=== PATIENT | female | born 1935 | race Caucasian/White ===

== ENCOUNTER 2018-09-05 12:10 | Emergency (ER) | payer OTHER ==
[2018-09-05] MEDS ORDERED: NS 500 ML IV ONE (14:29)
[2018-09-05 14:46] LABS: PLATELET COUNT 135 10^3/uL (150-400)
[2018-09-05 14:51] LABS: PROTIME(PATIENT) 12.8 SEC (12.0-15.0)
--- NOTE | 2018-09-05 15:27 | EDPHY ---
H & P Time Seen by Provider: 09/05/18 14:01 HPI/ROS: HPI Multiple falls. 83-year-old female by private vehicle with her son. This patient lives in a private residence down in [place]. Her son and family live here in [place]. The patient has had an upper respiratory infection with cough. She cotton over- the-counter cough and cold medication on Thursday night. Sometime early Thursday morning she got up to go to the bathroom and she fell striking her left posterior head. She denies loss of consciousness. She was able to get up. Her son brought her from [place] to his house last night. She had another fall last night while going to the bathroom is well striking her elbow and her right buttock area. She then had another fall this morning which she describes as mild and denies hurting herself with this fall. According to her son she has had no change in mentation. No difficulty walking. She denies neck pain. No back pain. No loss of sensation or weakness in her extremities. She currently denies any significant extremity pain. ROS: Constitutional: No fever, no chills. As above. Eyes: No discharge. No changes in vision. ENT: No sore throat. She has had nasal congestion. Respiratory: She has had a nonproductive cough. No shortness of breath. Cardiac: No chest pain, no palpitations. Gastrointestinal: No abdominal pain, no vomiting, no diarrhea. Genitourinary: No hematuria. No dysuria or increased frequency with urination. Musculoskeletal: No back pain. No neck pain. As above. Skin: No rashes. No lacerations. Neurological: No headache. No focal weakness or altered sensation. Past medical history: Urinary tract infections, right ureteral tumor. Social history: As above. Currently here with her son. Nonsmoker. No alcohol. Physical Exam: General Appearance: Alert, no distress. This patient is responding to questions appropriately and in full sentences. This patient appears well- hydrated and well-nourished. Head: Normocephalic atraumatic except for a left-sided posterior parietal occipital area hematoma. No scalp laceration appreciated. No bony step-off or deformity noted on palpation of this area. Face: Facial bones are stable on palpation. Eyes: Pupils equal and round and reactive to light, no pallor or injection. No lid erythema or edema. ENT, Mouth: Mucous membranes moist. Dentition is intact. No malocclusion of the jaw. No tongue lacerations or abrasions. Pharynx is clear. The bilateral nasal canals are clear. No septal hematoma. Respiratory: There are no retractions, lungs are clear to auscultation with good air movement bilaterally. Chest wall is stable to AP and lateral palpation. Cardiovascular: Regular rate and rhythm. No murmur. Gastrointestinal: Abdomen is soft and nontender, no masses, bowel sounds normal. Neurological: Motor sensory function is intact. Cranial nerves are normal. Cerebellar function intact. Skin: Warm and dry, no rashes. No lacerations, abrasions or contusions. Musculoskeletal: Neck is supple and nontender. The trachea is midline. No midline cervical, thoracic, lumbar or sacral tenderness on palpation. No flank tenderness on palpation. She has some ecchymosis and point tenderness directly over her right olecranon on. No bony deformity or step-off noted on palpation of this area. She has some mild pain involving the ischial tuberosity on the right side when ranging and axial loading her right hip. Extremities are symmetrical except noted, full range of motion except noted. All joints in the bilateral upper and bilateral lower extremities range without pain or impingement except noted. No tenderness on palpation of the long bones in the bilateral upper and bilateral lower extremities except noted. Psychiatric: No agitation. No depression. Database: EKG: EKG time is 12:18 p.m.; EKG shows a narrow complex normal sinus rhythm with a ventricular rate of 68. The NM, QRS, QT intervals are within normal limits. There are no ST-T wave changes indicative of ischemic or injury pattern. No evidence of right heart strain. No evidence of Brugada syndrome, WPW, hypertrophic cardiomyopathy. Interpreted by me. Imaging: Right elbow x-ray series: Negative. No evidence of fracture, subluxation, dislocation. Interpreted by me. Chest x-ray AP portable: The cardiac mediastinal silhouette is unremarkable. No evidence of pneumothorax. No evidence of infiltrate. The bony elements are unremarkable. Right hip x-ray series: Negative. No evidence of fracture, subluxation, dislocation. Interpreted by me. CT head without contrast: Left posterior parietal scalp hematoma. Otherwise negative. Results were discussed with staff radiologist Dr. Cruz Florian. Procedures: Emergency department course: Triage vital signs reviewed. Initial triage blood pressure was hypotensive. She says that she does have intermittent hypotension when she gets dehydrated. 2nd reading was normal. Vital signs are otherwise normal. IV was placed. She was placed on a cardiac tech. EKG obtained and reviewed by myself. She will be given 500 cc of IV normal saline over the next hour. X-ray and CT imaging as above were ordered. Patient and son consent to workup. 4:30 p.m., the patient was re-evaluated. I discussed results of her emergency department workup with both her and her son. I discussed admission for further evaluation by the hospitalist service and discussion of placement to a living situation with a higher level of care. Both the patient and her son do not want her admitted at this time. The son tells me that the patient will be staying with him and his family. They will then follow up with her primary care physician in [place] on Thursday of this week. We got the patient up and ambulated her around the emergency department. She did not have any difficulty with this. However, she had low blood pressures when she returned. This hypotension resolved. She had no associated tachycardia. No associated lightheadedness. She and her son both tell me that she has had issues with hypotension. I again discussed admission with the patient with her nurse . Both she and her son and daughter are again refusing admission. The patient competently engages in shared decision making. They demonstrate capacitance to make decisions. In my professional opinion, both she and her son understand the risks of refusing admission and further evaluation at our hospital at this time. Follow-up was discussed with the 2 of them. All of their questions were answered. The patient was discharged in good condition with her son. Differential Diagnosis: The differential diagnosis on this patient includes but is not limited to bronchitis, upper respiratory infection, minor head injury, right elbow contusion, multiple falls, orthostatic hypotension. This represents a partial list of diagnoses considered. These considerations are based on history, physical exam, past history, reassessment and diagnostic testing. Smoking Status: Never smoked Constitutional: Initial Vital Signs Temperature (C) 36.6 C 09/05/18 12:37 Heart Rate 69 09/05/18 12:37 Respiratory Rate 16 09/05/18 12:37 Blood Pressure 80/55 L 09/05/18 12:37 O2 Sat (%) 94 09/05/18 12:37 O2 Delivery Mode Room Air Allergies/Adverse Reactions: No Known Allergies Allergy (Unverified 09/05/18 12:37) Home Medications: Medication Instructions Recorded Aspirin 09/05/18 Atorvastatin Calcium 09/05/18 Medical Decision Making - Data Points Laboratory Results: Laboratory Results 09/05/18 13:00 09/05/18 13:00 Microbiology Results: MICROBIOLOGY 09/05/18 16:35 Urine,Clean Catch Urine Culture - Preliminary Gram Neg Bryant Nonlactose Ferm. Medications Given: Discontinued Medications Sodium Chloride (Ns) 500 mls @ 0 mls/hr IV EDNOW ONE; Wide Open PRN Reason: Protocol Stop: 09/05/18 14:30 Last Admin: 09/05/18 15:47 Dose: 500 mls Departure - Departure Disposition: Home, Routine, Self-Care Clinical Impression: Multiple falls, Orthostatic hypotension, Renal insufficiency, Dehydration Condition: Good Instructions: Dehydration (ED), Hypotension (ED), Fall Prevention (ED) Additional Instructions: Read and follow provided instructions. Follow-up with your primary care physician on Thursday or Thursday of this week for re-evaluation. I would like your blood work repeated and specifically your kidney function rechecked. I would also like your blood pressure is to be evaluated by your primary care physician. Keep yourself well hydrated. Drink plenty of fluids. Return to the emergency department for lightheadedness, chest pain, heart palpitations, fainting or other serious concerns. Referrals: WAYNE PUENTE [Other] - As per Instructions
[2018-09-05 18:04] VITALS: BP 90/60
== END 2018-09-05 18:13 | disposition home or self-care (01) ==
DX: I95.1 Orthostatic hypotension (principal); N28.9 Disorder of kidney and ureter, unspecified; E86.0 Dehydration; R26.9 Unspecified abnormalities of gait and mobility; S00.03XA Contusion of scalp, initial encounter; S50.311A Abrasion of right elbow, initial encounter; M25.551 Pain in right hip; W19.XXXA Unspecified fall, initial encounter; Y92.009 Unspecified place in unspecified non-institutional (private) residence as the place of occurrence of the external cause; Y93.89 Activity, other specified; Y99.9 Unspecified external cause status
CPT/HCPCS: G0480